=== PATIENT | female | born 1955 | race American Indian/Alaskan Native ===

== ENCOUNTER 2016-12-14 06:01 | Inpatient (IN) | payer MEDICARE ==
--- NOTE | 2016-12-12 08:40 | Anesthesia Consultation ---
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 NAC previously.
[2016-12-12 08:45] LABS: Basophils % (Auto) 0.4 % (0.0-1.8); Eosinophils % (Auto) 1.2 % (0.0-4.3); Hematocrit 36.2 % (30.3-42.9); Hemoglobin 12.4 gm/dl (10.1-14.3); Mean Corpuscular HGB Conc 34 % (30-34); Mean Corpuscular Hemoglobin 31 pg (28-32); Mean Corpuscular Volume 90 fl (79-97); Platelet Count 188 K/mm3 (140-440); Red Blood Count 4.01 M/mm3 (3.65-5.03); Red Cell Distribution Width 15.5 % (13.2-15.2); White Blood Count 8.7 K/mm3 (4.5-11.0)
[2016-12-12 08:58] LABS: INR 0.91 (0.87-1.13)
[2016-12-12 09:15] LABS: Anion Gap 15 mmol/L; Blood Urea Nitrogen 15 mg/dL (7-17); Calcium 9.4 mg/dL (8.4-10.2); Carbon Dioxide 30 mmol/L (22-30); Glucose 201 mg/dL (65-100); Potassium 3.6 mmol/L (3.6-5.0); Sodium 144 mmol/L (137-145)
[~2016-12-14 06:01] MED LIST: ANCEF/STERILE WATER 2 GM/20 ML 2 GM/20 ML SYRINGE IV NR; NACL 0.9% 1000 ML 1,000 ML IV SCH
[2016-12-14] MEDS ORDERED: NACL BACTERIOSTATIC INFILTRATI ONE (06:37)
[2016-12-14] MEDS ORDERED: NACL 0.9% 1000 ML 1,000 ML ONE ×4 (07:14→14:49)
[2016-12-14] MEDS ORDERED: MARCAINE 0.5% 30 ML INFILTRATI ONE (07:14)
[2016-12-14] MEDS ORDERED: PROTAMINE SULFATE ONE (07:14)
[2016-12-14] MEDS ORDERED: SODIUM BICARBONATE ONE (07:15)
[2016-12-14] MEDS ORDERED: XYLOCAINE 1%/ EPI 1:100,000 INFILTRATI ONE (07:15)
[2016-12-14] MEDS ORDERED: NACL 0.9% 500 ML 500 ML ONE (07:15)
[2016-12-14] MEDS ORDERED: HEPARIN 10,000 UNITS/10 ML ONE (07:15)
[2016-12-14] MEDS ORDERED: SUBLIMAZE ONE (07:24)
[2016-12-14] MEDS ORDERED: XYLOCAINE MPF 2% ONE (07:24)
[2016-12-14] MEDS ORDERED: DIPRIVAN 10 MG/ML IV ONE (07:24)
[2016-12-14] MEDS ORDERED: VERSED IV NR (08:00)
[2016-12-14] MEDS ORDERED: PEPCID IV NR (08:00)
[2016-12-14] MEDS ORDERED: NEO SYNEPHRINE ONE (08:43)
[2016-12-14] MEDS ORDERED: NACL 0.9% 100 ML ONE (08:43)
[2016-12-14] MEDS ORDERED: ePHEDrine SULFATE ONE (08:47)
[2016-12-14] MEDS ORDERED: MARCAINE 0.5% INFILTRATI ONE (09:10)
[2016-12-14] MEDS ORDERED: OMNIPAQUE (240mg) IV ONE (09:10)
[2016-12-14] MEDS ORDERED: HEPARIN 10,000 UNITS/10 ML 2,000 UNIT in NACL 0.9% 500 ML 500 ML IR ONE (09:10)
[2016-12-14] MEDS ORDERED: NACL 0.9% 1000 ML IR ONE ×2 (09:10)
[2016-12-14] MEDS ORDERED: DILAUDID IV PRN ×2 (12:29→17:46)
[2016-12-14] MEDS ORDERED: ZOFRAN IV PRN (13:00)
[2016-12-14] MEDS ORDERED: ZEMURON IV ONE ×2 (13:47)
[2016-12-14] MEDS ORDERED: NEOSTIGMINE ONE (15:06)
[2016-12-14] MEDS ORDERED: ROBINUL ONE (15:06)
[2016-12-14] MEDS ORDERED: DILAUDID ONE (15:11)
--- NOTE | 2016-12-14 15:38 | Post Anesthesia Evaluation ---
- Post Anesthesia Evaluation Patient Participated: Yes Airway Patent: Yes Stable Respiratory Function: Yes Nausea/Vomiting: No Temp > 96.8F: Yes Pain Manageable: Yes Adequeate Hydration: Yes Anesthesia Complications: No Block Receding Appropriately: Not Applicable Patient on Ventilator: No
[2016-12-14] MEDS ORDERED: PROAIR IH PRN (15:47)
[2016-12-14] MEDS ORDERED: NON-FORMULARY (Tizanidine Hcl [Tizanidine] 2 MG) PO PRN (15:47)
[2016-12-14] MEDS ORDERED: D50W (25GM) Syringe IV PRN (15:52)
[2016-12-14] MEDS ORDERED: PLAVIX PO ONE (15:52)
[2016-12-14] MEDS ORDERED: PROVENTIL IH PRN (15:55)
--- NOTE | 2016-12-14 16:01 | Post Operative Note ---
Date of procedure: 12/14/16 Pre-op diagnosis: bilateral LE chronic ischemia Post-op diagnosis: same Findings: occlusion of bilateral common iliac arteries, occlusion of right external iliac artery, bilateral common femoral arteries with high grade stenosis. Procedure: aortogram with bilateral iliac angiogram. no previous films available catheter positioning in the distal aorta up and over wire positioning in the right common iliac, external iliac artery left common iliac angioplasty with 6x 40 [place] balloon and common iliac stenting with 7 x 59 Viabahn VBX balloon expandable bilateral common femoral endarterectomies left to right fem fem bypass with 7mm external ring supported Kouts graft Anesthesia: GETA Surgeon: GENE KLEIN Baker Head: SONNY VILLANUEVA Estimated blood loss: other (150cc) Pathology: list Specimen disposition: to lab Condition: stable Disposition: PACU
[2016-12-14] MEDS ORDERED: ZANAFLEX PO PRN (16:06)
[2016-12-14] MEDS ORDERED: INSULIN ASPART 7 UNIT SQ SCH (16:30)
--- NOTE | 2016-12-14 17:02 | Operative Report ---
Operative Report Operative Report: Operative note: Date: 12/14/2016 Preoperative diagnosis: Bilateral lower extremity ischemia with left limiting short distance claudication Postoperative diagnosis: Same. Operation: aortogram with bilateral iliac angiogram. no previous films available catheter positioning in the distal aorta up and over wire positioning in the right common iliac, external iliac artery left common iliac angioplasty with 6x 40 [place] balloon and common iliac stenting with 7 x 59 Viabahn VBX balloon expandable bilateral common femoral endarterectomies left to right fem fem bypass with 7mm external ring supported [place] graft Surgeon: Lor Boo. Asst.: Casimiro Alfredo Anesthesia: Gen. EBL: 1 50 mL Fluids: 3 L crystalloids Findings: Bilateral common iliac and right external iliac occlusions, bilateral common femoral arteries with high-grade stenosis Indications: 61-year-old female with left limiting short distance claudication and no palpable femoral pulses. She was explained risks, benefits and alternatives of procedure and chose to proceed, signed consent. Operative details: Patient was brought to the operating room and placed in supine position. She underwent endotracheal intubation and a line placement by anesthesia provider. She was prepped from the xiphoid process to the knees and draped in sterile fashion exposing bilateral groins. Timeout performed. We started with making a vertical incision over right femoral artery with 10 blade and carried down with electrocautery subcutaneous tissue. Crossing venous branches were ligated and divided. Femoral artery was exposed. It was dissected proximally and distally. Profunda artery and superficial femoral artery were identified and encircled with Silastic vessel loops. Branches were identified and taken on total silk and secured with hemostat. Next we performed incision over left common femoral area with 10 blade and carried down with electrocautery through subcutaneous tissue. Left common femoral artery was exposed. Crossing branches were ligated and divided. It was dissected proximally and distally. Profunda artery and superficial femoral artery were identified and encircled with Silastic vessel loops. All branches were taken on total silk and secured with hemostats. For proximal control vessel loop was placed at the proximal common femoral artery. Femorofemoral tunnel was created using hemostat and the tape was secured in the tunnel with hemostat. Initially, we attempted placing a micropuncture wire and micropuncture sheath in the right common femoral artery. Iliac angiogram was performed and showed occlusion of proximal external iliac artery. We attempted Crossing with a Bentson wire, however it was unsuccessful. Placed next we accessed the left common femoral artery and placed a micropuncture sheath. It was exchanged to a 6 Faroese access sheath over a Bentson wire. Maneuvering vertebral catheter and Glidewire we were able to advance dose in the distal aorta. A vertebral catheter was exchanged to Omni flush catheter. aortogram with bilateral iliac runoffs was performed. It showed bilateral common iliac occlusions, and areas of high-grade stenosis, right external iliac occlusion. We decided to perform right femoral endarterectomy and attempted to get through external iliac occlusion. He was still significant amount of occluded right external iliac left. We then attempted to go up and over from the left side using a Glidewire and Omni Flush catheter initially, then Rim catheter. We were able to maneuver the wire through the proximal common iliac occlusion into the external iliac occluded area, but couldn't advance it further. A rim catheter was then exchanged to trailblazer, however all attempts were unsuccessful. At this point we decided to perform left iliac stenting and femoral to femoral bypass. The advanced Glidewire into aorta, advanced trailblazer into the distal aorta also. Glidewire was exchanged to an Amplatz wire. Trailblazer was removed. It was divided difficult manipulating catheters through left common iliac occlusion, therefore we decided to perform balloon angioplasty before placing iliac stent. 6 x 40 mm covered with bone was advanced and positioned at the common iliac occlusion. It was inflated to 8 john for 1 minute. Balloon was removed and Access sheath was exchanged to a long 7 [place] bright tip access sheath. The tip of the sheath was positioned at the takeoff of common iliac artery. Then 7 x 59 Viabahn VBX stent was positioned. Sheath was pulled back and stent was deployed. Post-deployment angiogram showed good location of the stent, but required more dilation. It was postdilated with 8 mm conquest balloon. There was a good lumen seen on post dilation angiogram. Next, proximal and distal control was gained and all devices were removed from left common femoral artery. Arteriotomy was performed with 11 blade and extended with Dyson scissors. Femoral endarterectomy was performed using freer elevator. Good lumen of profunda was checked. It was good backbleeding. Proximal superficial femoral artery had disease and plaque was truncated and flaps were tacked with 6-0 Prolene. 7 mm core graft supported with external ring was tunneled using created tunnel previously. Graft was called beveling to cover arteriotomy site. Anastomosis was created circumferentially with 5-0 suture. It required few repair stitches. Fibrillar was placed over needle holes. Before closing anastomosis all vessels were flushed showing good flow in profunda, superficial femoral artery and common femoral artery, lumen was flushed. Proximal and distal controls were released and graft was clamped at the right groin side. Then we switched our attention to right groin. The graft was cut and beveled to fit the endarterectomized site. Anastomosis was created using 5-0 Prolene. Before completion of anastomosis all lumens were flushed including profunda, superficial femoral artery, common femoral artery, graft. The lumen was irrigated with heparinized saline. Anastomosis was completed. It required a couple repair stitches for hemostasis. Quick clot sponge was placed to secure hemostasis from needle holes. Once hemostasis was achieved and good Doppler signals were confirmed bilaterally groins were closed in 2 layers with Vicryl and 4-0 Monocryl. Dermabond was applied. Identical procedure all needle and sponge counts were correct 2. Patient tolerated the procedure well. She had bilateral DP Doppler signals. She was extubated and transferred to PACU in stable condition.
[2016-12-14] MEDS ORDERED: VASELINE LIP THERAPY TP ONE (19:36)
[2016-12-14] MEDS: NORCO 5/325 PO PRN (20:26)
[2016-12-14] MEDS ORDERED: NACL 0.9% 1000 ML 1,000 ML IV SCH (21:52)
[2016-12-14] MEDS ORDERED: RANITIDINE HCL 150 MG PO SCH (22:00)
[2016-12-14] MEDS ORDERED: NON-FORMULARY (Pregabalin [Lyrica] 100 MG) PO SCH (22:00)
[2016-12-14] MEDS ORDERED: PEPCID PO SCH (22:00)
[2016-12-14] MEDS ORDERED: NON-FORMULARY (Insulin Glargine 15 UNIT) SUB-Q SCH (22:00)
[2016-12-14] MEDS: LYRICA PO SCH ×2 (22:28→22:31)
[2016-12-14] MEDS: COREG PO SCH (22:28)
[2016-12-14] MEDS: NOVOLOG SUB-Q SCH (22:29)
[2016-12-14] MEDS: PLETAL PO SCH (22:30)
[2016-12-14] MEDS: LEVEMIR SUB-Q SCH (22:30)
[2016-12-15] MEDS: ANCEF/NS 1 GM/50 ML 1 GM/50 ML BAG IV SCH (00:35)
[2016-12-15] MEDS: MORPHINE IV PRN ×4 (04:21→21:53)
[2016-12-15 04:43] LABS: Hematocrit 26.2 % (30.3-42.9); Hemoglobin 8.9 gm/dl (10.1-14.3)
[2016-12-15 05:05] LABS: Blood Urea Nitrogen 21 mg/dL (7-17); Calcium 7.5 mg/dL (8.4-10.2); Carbon Dioxide 22 mmol/L (22-30); Glucose 82 mg/dL (65-100)
[2016-12-15 05:06] LABS: Potassium 3.4 mmol/L (3.6-5.0); Sodium 141 mmol/L (137-145)
[2016-12-15 05:10] LABS: Anion Gap 16 mmol/L
[2016-12-15] MEDS: NOVOLOG SUB-Q SCH ×7 (07:45→22:00)
--- NOTE | 2016-12-15 09:20 | Progress Note ---
Subjective Date of service: 12/15/16 Interval history: No anesthetic related complaints. Objective - Constitutional Vitals: Vital Signs - 12hr 12/14/16 12/14/16 12/14/16 22:00 22:28 23:00 Temperature Pulse Rate 76 77 75 Respiratory 16 17 Rate Blood Pressure 136/82 147/82 O2 Sat by Pulse 99 100 Oximetry 12/14/16 12/15/16 12/15/16 23:31 00:00 04:00 Temperature 97.9 F 98.7 F Pulse Rate 75 Respiratory 16 Rate Blood Pressure 148/84 O2 Sat by Pulse 100 Oximetry 12/15/16 12/15/16 07:15 08:00 Temperature 98.3 F Pulse Rate Respiratory 18 Rate Blood Pressure O2 Sat by Pulse Oximetry - Labs CBC & Chem 7: 12/15/16 04:02 12/15/16 04:02 Labs: Abnormal lab results 12/14/16 12/14/16 12/14/16 Range/Units 12:50 16:30 21:24 Hgb (10.1-14.3) gm/dl Hct (30.3-42.9) % Potassium (3.6-5.0) mmol/L BUN (7-17) mg/dL POC Glucose 118 H 139 H 129 H (70-105) Calcium (8.4-10.2) mg/dL 12/15/16 12/15/16 Range/Units 04:02 04:02 Hgb 8.9 L D (10.1-14.3) gm/dl Hct 26.2 L D (30.3-42.9) % Potassium 3.4 L (3.6-5.0) mmol/L BUN 21 H (7-17) mg/dL POC Glucose (70-105) Calcium 7.5 L D (8.4-10.2) mg/dL
[2016-12-15] MEDS ORDERED: POTASSIUM CHLORIDE 10 MEQ PO SCH (10:00)
[2016-12-15] MEDS ORDERED: METFORMIN HCL 1000 MG PO SCH (10:00)
[2016-12-15] MEDS ORDERED: PROTONIX PO SCH (10:00)
[2016-12-15] MEDS ORDERED: NON-FORMULARY (Losartan [Cozaar] 100 MG) PO SCH (10:00)
[2016-12-15] MEDS: PLAVIX PO SCH (10:36)
[2016-12-15] MEDS: COZAAR PO SCH (10:36)
[2016-12-15] MEDS: COREG PO SCH ×3 (10:37→22:34)
[2016-12-15] MEDS: GLUCOPHAGE PO SCH (10:37)
[2016-12-15] MEDS: LYRICA PO SCH ×4 (10:37→21:52)
[2016-12-15] MEDS: PROTONIX PO SCH (10:37)
[2016-12-15] MEDS: HCTZ PO SCH (10:37)
[2016-12-15] MEDS: K-DUR PO SCH (10:38)
[2016-12-15] MEDS: FLONASE NS SCH (10:38)
[2016-12-15] MEDS: LOVENOX SUB-Q SCH (10:39)
[2016-12-15] MEDS: NORVASC PO SCH (10:50)
--- NOTE | 2016-12-15 12:35 | Consultation ---
History of Present Illness Consult date: 12/15/16 Requesting physician: GENE KLEIN Reason for consult: other (PVD with bilateral Iliac Artery Occlusion; ) History of present illness: PULMONARY/CCM CONSULT NOTE (Full dictation # [id number]) Please see dictated notes for full details Medications and Allergies Allergies Allergy/AdvReac Type Severity Reaction Status Date / Time clonidine HCl [From Catapres] AdvReac cough Verified 12/07/16 17:22 applesauce Allergy Hives Uncoded 12/07/16 17:22 Home Medications Medication Instructions Recorded Confirmed Last Taken Type Albuterol Sulfate [Ventolin HFA] 2 puff IH Q4H PRN 12/12/16 12/12/16 Unknown History Alendronate Sodium [Fosamax] 70 mg PO QWEEK 12/12/16 12/14/16 12/12/16 07:30 History Aspirin [Adult Low Dose Aspirin EC] 81 mg PO DAILY 12/12/16 12/14/16 12/13/16 10 :00 History AtorvaSTATin [Lipitor] 40 mg PO QHS 12/12/16 12/14/16 12/14/16 04:45 History Carvedilol [Coreg] 12.5 mg PO BID 12/12/16 12/14/16 12/14/16 04:45 History Cilostazol [Pletal] 100 mg PO BID 12/12/16 12/14/16 12/14/16 04:45 History Fluticasone [Flonase] 2 spray NS QDAY 12/12/16 12/14/16 12/14/16 04:45 History Hydrochlorothiazide [HCTZ] 25 mg PO QDAY 12/12/16 12/14/16 12/14/16 04:45 History Insulin Aspart [NovoLOG Flexpen] 7 units SQ AC 12/12/16 12/14/16 12/13/16 21:30 History Insulin Glargine [Lantus] 15 unit SUB-Q QHS 12/12/16 12/14/16 12/13/16 21:30 History Losartan [Cozaar] 100 mg PO QDAY 12/12/16 12/14/16 12/14/16 04:45 History Metformin HCl [Metformin HCl ER] 1,000 mg PO DAILY 12/12/16 12/14/16 12/13/16 10 :00 History Pantoprazole [Protonix] 40 mg PO QDAY 12/12/16 12/14/16 12/14/16 04:45 History Potassium Chloride [Klor-Con 10 meq PO DAILY 12/12/16 12/14/16 12/14/16 04:45 History Sprinkle] Pregabalin [Lyrica] 100 mg PO BID 12/12/16 12/14/16 12/14/16 04:45 History Ranitidine HCl 150 mg PO BID 12/12/16 12/14/16 12/14/16 04:45 History Tizanidine HCl [tiZANidine] 2 mg PO DAILY PRN 12/12/16 12/14/16 12/14/16 04:45 History amLODIPine [Norvasc] 10 mg PO DAILY 12/12/16 12/14/16 12/14/16 04:45 History Active Meds: Active Medications Acetaminophen/Hydrocodone Bitart ([place] 5/325) 2 each PO Q6H PRN PRN Reason: Pain, Moderate (4-6) Last Admin: 12/14/16 20:26 Dose: 2 each Albuterol (Proventil) 2.5 mg IH Q4HRT PRN PRN Reason: Shortness Of Breath Alendronate Sodium (Fosamax) 70 mg PO Th [facility] Amlodipine Besylate (Norvasc) 10 mg PO DAILY [facility] Last Admin: 12/15/16 10:50 Dose: 10 mg Atorvastatin Calcium (Lipitor) 40 mg PO QHS [facility] Last Admin: 12/14/16 22:28 Dose: 40 mg Carvedilol (Coreg) 12.5 mg PO BID [facility] Last Admin: 12/15/16 10:37 Dose: 12.5 mg Cilostazol (Pletal) 100 mg PO BID [facility] Last Admin: 12/14/16 22:30 Dose: 100 mg Clopidogrel Bisulfate (Plavix) 75 mg PO QDAY [facility] Last Admin: 12/15/16 10:36 Dose: 75 mg Dextrose (D50w (25gm) Syringe) 50 ml IV PRN PRN PRN Reason: Hypoglycemia Enoxaparin Sodium (Lovenox) 40 mg SUB-Q QDAY [facility] Last Admin: 12/15/16 10:39 Dose: 40 mg Fluticasone Propionate (Flonase) 100 mcg NS QDAY [facility] Last Admin: 12/15/16 10:38 Dose: 100 mcg Hydrochlorothiazide (Hctz) 25 mg PO QDAY [facility] Last Admin: 12/15/16 10:37 Dose: 25 mg Insulin Aspart (Novolog) 0 units SUB-Q ACHS [facility] PRN Reason: Protocol Last Admin: 12/15/16 12:31 Dose: Not Given Insulin Aspart (Novolog) 7 units SUB-Q AC [facility] Last Admin: 12/15/16 12:31 Dose: 7 units Insulin Detemir (Levemir) 15 units SUB-Q QHS [facility] Last Admin: 12/14/16 22:30 Dose: Not Given Losartan Potassium (Cozaar) 100 mg PO QDAY [facility] Last Admin: 12/15/16 10:36 Dose: 100 mg Metformin HCl (Glucophage) 1,000 mg PO QDAY [facility] Last Admin: 12/15/16 10:37 Dose: 1,000 mg Morphine Sulfate (Morphine) 2 mg IV Q4H PRN PRN Reason: Pain, Moderate (4-6) Last Admin: 12/15/16 10:33 Dose: 2 mg Morphine Sulfate (Morphine) 4 mg IV Q4H PRN PRN Reason: Pain , Severe (7-10) Pantoprazole Sodium (Protonix) 40 mg PO QDAY [facility] Last Admin: 12/15/16 10:37 Dose: 40 mg Potassium Chloride (K-Dur) 10 meq PO QDAY [facility] Last Admin: 12/15/16 10:38 Dose: 10 meq Pregabalin (Lyrica) 25 mg PO BID [facility] Last Admin: 12/15/16 10:37 Dose: 25 mg Pregabalin (Lyrica) 75 mg PO BID [facility] Last Admin: 12/15/16 10:49 Dose: 75 mg Tizanidine HCl (Zanaflex) 2 mg PO QDAY PRN PRN Reason: Muscle Spasm Physical Examination Vital signs: Vital Signs Temp Pulse Resp BP 98.2 F 70 16 144/80 12/12/16 08:15 12/12/16 08:15 12/12/16 08:15 12/12/16 08:15 Results - Laboratory Findings CBC and BMP: 12/15/16 04:02 12/15/16 04:02 PT/INR, D-dimer PT 12.7 Sec. (12.2-14.9) 12/12/16 08:05 INR 0.91 (0.87-1.13) 12/12/16 08:05 Abnormal lab findings: Abnormal Labs 12/12/16 12/12/16 12/14/16 08:05 08:05 06:49 Hgb Hct RDW 15.5 H [place] % (Auto) 10.7 H [place] # 0.9 H Potassium BUN Creatinine 0.5 L Glucose 201 H POC Glucose 109 H Calcium 12/14/16 12/14/16 12/14/16 12:50 16:30 21:24 Hgb Hct RDW [place] % (Auto) [place] # Potassium BUN Creatinine Glucose POC Glucose 118 H 139 H 129 H Calcium 12/15/16 12/15/16 12/15/16 04:02 04:02 11:55 Hgb 8.9 L D Hct 26.2 L D RDW [place] % (Auto) [place] # Potassium 3.4 L BUN 21 H Creatinine Glucose POC Glucose 182 H Calcium 7.5 L D
[2016-12-15] MEDS: PLETAL PO SCH ×2 (13:05→22:01)
--- NOTE | 2016-12-15 15:07 | Progress Note ---
Assessment and Plan 61-year-old female with bilateral iliac artery disease and status post left to right femoral-femoral bypass with endarterectomies and left iliac artery stenting and angioplasty. Patient doing well from procedure. Doing well. Vital signs stable. We'll plan on transfer out of unit tomorrow if everything going well. Out of bed 3 times a day, minimum. Subjective Date of service: 12/15/16 Interval history: Patient doing well. Got out of bed multiple times. Both feet are warm and well -perfused. No pain in her calves. No pain in her feet. No motor dysfunction. No sensory dysfunction except for chronic baseline neuropathy. Nonpalpable pedal pulses that are dopplerable. Both groin sites are clean, dry, and intact. Objective - Constitutional Vitals: Vital Signs - 12hr 12/15/16 12/15/16 12/15/16 04:00 07:15 08:00 Temperature 98.7 F 98.3 F Pulse Rate Respiratory 18 Rate Blood Pressure 12/15/16 12/15/16 12/15/16 10:36 10:37 10:50 Temperature Pulse Rate 97 H 89 93 H Respiratory Rate Blood Pressure 140/77 140/77 140/77 12/15/16 12/15/16 11:45 12:46 Temperature 97.9 F Pulse Rate Respiratory 22 Rate Blood Pressure General appearance: Present: no acute distress - EENT Eyes: EOM intact ENT: hearing intact - Respiratory Respiratory effort: normal Extremity abnormal: other (see subjective ) - Psychiatric Psychiatric: appropriate mood/affect, cooperative - Labs CBC & Chem 7: 12/15/16 04:02 12/15/16 04:02 Labs: Abnormal lab results 12/14/16 12/14/16 12/15/16 Range/Units 16:30 21:24 04:02 Hgb 8.9 L D (10.1-14.3) gm/dl Hct 26.2 L D (30.3-42.9) % Potassium (3.6-5.0) mmol/L BUN (7-17) mg/dL POC Glucose 139 H 129 H (70-105) Calcium (8.4-10.2) mg/dL 12/15/16 12/15/16 Range/Units 04:02 11:55 Hgb (10.1-14.3) gm/dl Hct (30.3-42.9) % Potassium 3.4 L (3.6-5.0) mmol/L BUN 21 H (7-17) mg/dL POC Glucose 182 H (70-105) Calcium 7.5 L D (8.4-10.2) mg/dL
[2016-12-15] MEDS: LEVEMIR SUB-Q SCH (22:01)
[2016-12-16] MEDS: MORPHINE IV PRN ×4 (01:55→22:34)
[2016-12-16] MEDS: ANCEF/NS 1 GM/50 ML 1 GM/50 ML BAG IV SCH (02:21)
[2016-12-16] MEDS: NORCO 5/325 PO PRN (02:26)
[2016-12-16] MEDS ORDERED: ANCEF/NS 1 GM/50 ML 1 GM/50 ML BAG IV SCH (03:00)
--- NOTE | 2016-12-16 04:13 | Consultation ---
PULMONARY CRITICAL CARE EVALUATION NOTE CONSULTING PHYSICIAN: Dr. Boo. REASON FOR CONSULTATION: Peripheral vascular disease with occlusion of bilateral common iliac arteries, occlusion of the right external iliac artery, and bilateral common femoral arteries with high grade stenosis status post bilateral common femoral endarterectomies and left to right fem-fem bypass. CHIEF COMPLAINT AND HISTORY OF PRESENT ILLNESS: The patient is a 61-year-old -[place] female with past medical history indeed significant for a diagnosis of peripheral vascular disease, intermittent claudication that has really bothered her and reduced her quality of life. She was seen by the [facility] Vascular specialist team and electively admitted for performance of the operative intervention as mentioned above. Postoperatively, ICU admission was requested for close monitoring and observation. When I stopped by to see her, she was resting in room. She was lying in bed. She had sat up in chair, but has not really walked around on the leg yet. She was complaining of bilateral lower extremity pain all the same. She denied any nausea or vomiting. She denied any hematochezia. She denied any chest pain. She denied fevers or chills. She does admit to certainly a 10+ pack year tobacco smoking history, but quit smoking she tells me in 2006. That really is as much of the history of presentation as I have. She does have a history of chronic obstructive lung disease. Denies being on any bronchodilator medications at home. PAST MEDICAL HISTORY: Again, as far as I can tell from the records, history of atherosclerotic vascular disease, chronic obstructive lung disease, hyperlipidemia, diabetes, chronic kidney disease stage 3, gastroesophageal reflux disease, chronic pancreatitis. PAST SURGICAL HISTORY: She has had surgery of esophagus, she is unclear what that was. 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 Now, she has had this surgery as mentioned above. MEDICATIONS: She was on at the time I stopped by to see her, according to the medication administration record included the following: [place] 5/325 two tablets p.o. q. 6 hours p.r.n. moderate pain, Fosamax 70 mg p.o. once weekly, Norvasc 10 mg p.o. daily, Lipitor 40 mg p.o. at bedtime, Coreg 12.5 mg p.o. b.i.d., cilostazol 100 mg p.o. b.i.d., Plavix 75 mg p.o. daily, Lovenox 40 mg p.o. daily, Flonase 100 mcg to each nostril daily one time, hydrochlorothiazide 25 mg p.o. daily, insulin via sliding scale, detemir insulin units subcutaneous at bedtime, metformin 1 gram p.o. daily, morphine sulfate 4 mg IV q. 4 hours p.r.n. severe pain, Protonix 40 mg p.o. daily, potassium chloride 10 mEq p.o. daily, Lyrica a total of 100 mg p.o. b.i.d., Zanaflex 2 mg p.o. daily, p.r.n. muscle spasms. ALLERGIES: CLONIDINE AND TO APPLESAUCE, NATURE OF THIS ALLERGY IS UNKNOWN. DIET: Thin lady. Denies significant weight loss or gain in the preceding few weeks to months. FAMILY AND SOCIAL HISTORY: Lives in the community. She has a remote 10+ pack year tobacco smoking history. Denies current alcohol, tobacco, or illicit drug use or abuse. Family history, otherwise noncontributory. REVIEW OF SYSTEMS: No loss of consciousness. No new onset seizures. No new onset focal weakness. No gross hematochezia or melena. She has the lower extremity pain. Complete 14 system review of systems obtained. Pertinent positives and/or negatives as in body of history above, otherwise they are noncontributory. PHYSICAL EXAMINATION: VITAL SIGNS: At presentation, she was afebrile, temperature 98.2 degrees Fahrenheit, pulse 74, respiratory rate 16, blood pressure 133/79, oxygen sats are 100%, inspired oxygen concentration was not recorded. She was on room air at the time I saw her. HEAD, EYES, EARS, NOSE AND THROAT: Pupils are equal, round, about 3 mm reactive to light. Extraocular muscle movements are intact. Oropharynx is a Mallampati #2 oropharynx. No significant posterior oropharyngeal erythema. Grossly, no palpable lymph nodes in the supraclavicular or submandibular lymph node chains. No gross jugular venous distention. LUNGS: Auscultation of both lung cuellar, apart from slightly diminished bilateral breath sounds they are clear bilaterally. HEART: Heart sounds 1 and 2 are heard. They were regular in rate and rhythm at time of my evaluation. ABDOMEN: Soft. Bowel sounds are positive. Did not appear tender. EXTREMITIES: Without overt digital clubbing or cyanosis. She has loss of hair to the lower extremities on the [place]z consistent with the peripheral vascular disease. NEUROLOGIC: The exam was grossly nonfocal. LABORATORY DATA: From my review are as follows: Labs from the , white cell count 8700, hemoglobin was 12.4, hematocrit 36.2, platelet count was 188. INR was 0.91. Serum sodium 144, potassium 3.6, chloride 103, bicarbonate 30, BUN 15, creatinine 0.5, and glucose was 201. Hemoglobin today is 8.9. Potassium is 3.4. No microbiology studies. No radiographic studies for my review. ASSESSMENT AND PLAN: We have a middle-aged lady status post extensive vascular surgery, still with some pain, may well just be related to the operative intervention itself. She is actually doing relatively well, hemodynamically stable. Blood pressure is stable. She is not on any oxygen at this point. It is unclear if she has ever been evaluated at length for COPD or how bad it is for now. We will continue the p.r.n. bronchodilators as ordered. Oxygen therapy will be started if her sats drop below 90%. Aspiration precautions will be maintained. She is appropriately on GI and DVT prophylaxis. She was soon be reevaluated by the Vascular team and if it is okay with them, she certainly can be transferred to regular medical floor. I doubt she is going to go home with the amount of pain she is complaining about. Thank you very much for the consult. We will follow along and make further recommendations as picture progresses/becomes clear. Consideration will be made for an arterial blood gas just to better understand how better COPD is in terms of carbon dioxide retention and I should of course mention that we will monitor her H and H just to make sure she is not actively bleeding. JOB# [id number] JOHNSON/DEBBIE
[2016-12-16] MEDS: NOVOLOG SUB-Q SCH ×7 (08:00→18:09)
[2016-12-16] MEDS: NORVASC PO SCH (10:58)
[2016-12-16] MEDS: PLAVIX PO SCH (10:58)
[2016-12-16] MEDS: HCTZ PO SCH (10:58)
[2016-12-16] MEDS: COREG PO SCH ×2 (10:59→22:40)
[2016-12-16] MEDS: FLONASE NS SCH (11:00)
[2016-12-16] MEDS: LOVENOX SUB-Q SCH (11:01)
[2016-12-16] MEDS: PLETAL PO SCH ×2 (11:02→22:23)
[2016-12-16] MEDS: LYRICA PO SCH ×4 (11:12→22:23)
[2016-12-16] MEDS: COZAAR PO SCH (11:12)
[2016-12-16] MEDS: PROTONIX PO SCH (11:13)
[2016-12-16] MEDS: GLUCOPHAGE PO SCH (11:13)
[2016-12-16] MEDS: K-DUR PO SCH (11:15)
--- NOTE | 2016-12-16 12:13 | Progress Note ---
Assessment and Plan - Patient Problems (1) Arterial atherosclerosis Current Visit: Yes Status: Acute Plan to address problem: S/P fem fem bypass with iliac intervention. Wounds clean, dry and intact. Transfer to floor. Subjective Date of service: 12/16/16 Interval history: Feels better after surgery. No complaints Objective - Constitutional Vitals: Vital Signs - 12hr 12/16/16 12/16/16 12/16/16 01:11 01:12 01:55 Temperature Pulse Rate Respiratory 23 17 Rate Respiratory 16 Rate [Bilateral Groin] Blood Pressure 12/16/16 12/16/16 12/16/16 02:25 02:26 03:26 Temperature Pulse Rate Respiratory 17 27 H 20 Rate Respiratory Rate [Bilateral Groin] Blood Pressure 12/16/16 12/16/16 12/16/16 05:00 08:00 10:58 Temperature 99 F Pulse Rate 92 H Respiratory 18 Rate Respiratory 18 Rate [Bilateral Groin] Blood Pressure 134/72 12/16/16 12/16/16 10:59 11:12 Temperature Pulse Rate 92 H 92 H Respiratory Rate Respiratory Rate [Bilateral Groin] Blood Pressure 134/72 134/76 General appearance: Present: no acute distress - EENT ENT: hearing intact - Respiratory Respiratory effort: normal Respiratory: bilateral: CTA - Cardiovascular Rhythm: regular Heart Sounds: Present: S1 & S2 Extremities: no ischemia, No edema, normal color, Full ROM - Musculoskeletal Musculoskeletal: strength equal bilaterally - Psychiatric Psychiatric: appropriate mood/affect - Labs CBC & Chem 7: 12/15/16 04:02 12/15/16 04:02 Labs: Abnormal lab results 12/15/16 12/15/16 12/15/16 Range/Units 11:55 16:32 21:52 POC Glucose 182 H 60 L 232 H (70-105) 12/16/16 Range/Units 08:47 POC Glucose 66 L (70-105)
--- NOTE | 2016-12-16 15:34 | Progress Note ---
Subjective Date of service: 12/16/16 Principal diagnosis: ASCVD s/p fem-fem Bypass; Interval history: Seen and examined at bedside; 24 hour events reviewed; nursing and respiratory care staff consulted; no adverse overnight events reported to me; Objective Vital Signs - 12hr 12/16/16 12/16/16 12/16/16 05:00 08:00 09:00 Temperature 99 F Pulse Rate Respiratory 18 18 Rate Respiratory 18 Rate [Bilateral Groin] Blood Pressure O2 Sat by Pulse 95 Oximetry 12/16/16 12/16/16 12/16/16 10:58 10:59 11:12 Temperature Pulse Rate 92 H 92 H 92 H Respiratory Rate Respiratory Rate [Bilateral Groin] Blood Pressure 134/72 134/72 134/76 O2 Sat by Pulse Oximetry 12/16/16 12:12 Temperature Pulse Rate Respiratory Rate Respiratory Rate [Bilateral Groin] Blood Pressure O2 Sat by Pulse 97 Oximetry CBC and BMP: 12/15/16 04:02 12/15/16 04:02 ABG, PT/INR, D-dimer: PT/INR, D-dimer PT 12.7 Sec. (12.2-14.9) 12/12/16 08:05 INR 0.91 (0.87-1.13) 12/12/16 08:05 Abnormal lab findings: Abnormal Labs 12/12/16 12/12/16 12/14/16 08:05 08:05 06:49 Hgb Hct RDW 15.5 H [place] % (Auto) 10.7 H [place] # 0.9 H Potassium BUN Creatinine 0.5 L Glucose 201 H POC Glucose 109 H Calcium 12/14/16 12/14/16 12/14/16 12:50 16:30 21:24 Hgb Hct RDW [place] % (Auto) [place] # Potassium BUN Creatinine Glucose POC Glucose 118 H 139 H 129 H Calcium 12/15/16 12/15/16 12/15/16 04:02 04:02 11:55 Hgb 8.9 L D Hct 26.2 L D RDW [place] % (Auto) [place] # Potassium 3.4 L BUN 21 H Creatinine Glucose POC Glucose 182 H Calcium 7.5 L D 12/15/16 12/15/16 12/16/16 16:32 21:52 08:47 Hgb Hct RDW [place] % (Auto) [place] # Potassium BUN Creatinine Glucose POC Glucose 60 L 232 H 66 L Calcium
[2016-12-16] MEDS: LEVEMIR SUB-Q SCH (22:26)
[2016-12-17] MEDS: NOVOLOG SUB-Q SCH ×9 (00:39→23:11)
[2016-12-17] MEDS: NORCO 5/325 PO PRN ×3 (04:00→23:09)
[2016-12-17] MEDS: FLONASE NS SCH (11:03)
[2016-12-17] MEDS: PLETAL PO SCH ×2 (11:04→23:12)
[2016-12-17] MEDS: LOVENOX SUB-Q SCH (11:04)
[2016-12-17] MEDS: HALFPRIN EC PO SCH (11:04)
[2016-12-17] MEDS: HCTZ PO SCH (11:04)
[2016-12-17] MEDS: PLAVIX PO SCH (11:05)
[2016-12-17] MEDS: LYRICA PO SCH ×4 (11:05→23:12)
[2016-12-17] MEDS: K-DUR PO SCH (11:06)
[2016-12-17] MEDS: GLUCOPHAGE PO SCH (11:06)
[2016-12-17] MEDS: NORVASC PO SCH (11:14)
[2016-12-17] MEDS: COZAAR PO SCH (11:14)
[2016-12-17] MEDS: COREG PO SCH ×2 (11:15→23:10)
[2016-12-17] MEDS: PROTONIX PO SCH (11:17)
--- NOTE | 2016-12-17 11:19 | Progress Note ---
Assessment and Plan - Patient Problems (1) Arterial atherosclerosis Current Visit: Yes Status: Acute Plan to address problem: S/P fem fem bypass with iliac intervention. Wounds clean, dry and intact. PT, increase mobilization. Subjective Principal diagnosis: ASCVD s/p fem-fem Bypass; Interval history: Feels better after surgery. No complaints. Ambulating in room. Objective - Constitutional Vitals: Vital Signs - 12hr 12/16/16 12/17/16 12/17/16 23:53 07:45 08:12 Temperature 99.4 F 99.0 F Pulse Rate 100 H Respiratory 18 16 Rate Blood Pressure 119/64 138/72 O2 Sat by Pulse 100 100 Oximetry General appearance: Present: no acute distress - Neck Neck: supple, normal ROM - Respiratory Respiratory: bilateral: CTA - Breasts Breasts: deferred - Cardiovascular Rhythm: regular Heart Sounds: Present: S1 & S2 Extremities: no ischemia, pulses symmetrical, No edema, normal color - Gastrointestinal General gastrointestinal: Present: soft, non-tender - Integumentary Integumentary: clear, warm, dry - Labs CBC & Chem 7: 12/15/16 04:02 12/15/16 04:02 Labs: Abnormal lab results 12/16/16 12/16/16 12/17/16 Range/Units 07:47 17:33 06:42 POC Glucose 59 L 141 H 41 L (70-105)
--- NOTE | 2016-12-17 15:50 | Progress Note ---
Assessment and Plan Patient alert. awake. No complaint of chest pain or shortness of breath.O2 saturation 97% on room air. Patient has history of smoking. Counselled to stop smoking. - Patient Problems (1) Arterial atherosclerosis Current Visit: Yes Status: Acute Plan to address problem: Patient has endarterectomy and femoral bypass. Management as per vascular surgery. (2) Tobacco use disorder Current Visit: Yes Status: Acute Plan to address problem: Counselled to stop smoking. PFTs as out patient. Subjective Date of service: 12/17/16 Principal diagnosis: ASCVD s/p fem-fem Bypass; Interval history: Patient alert. awake. No complaint of chest pain or shortness of breath.O2 saturation 97% on room air. Patient has history of smoking. Counselled to stop smoking. Objective Vital Signs - 12hr 12/17/16 12/17/16 12/17/16 07:45 08:12 11:14 Temperature 99.0 F Pulse Rate 88 Respiratory 16 Rate Blood Pressure 138/72 138/72 O2 Sat by Pulse 100 Oximetry 12/17/16 12/17/16 12/17/16 11:15 11:54 15:22 Temperature 99.7 F H 98.3 F Pulse Rate 88 Respiratory 18 18 Rate Blood Pressure 138/72 139/73 103/58 O2 Sat by Pulse Oximetry Constitutional: no acute distress, alert Eyes: non-icteric ENT: oropharynx moist Neck: supple, no lymphadenopathy Ascultation: Bilateral: diminished breath sounds Cardiovascular: regular rate and rhythm Gastrointestinal: normoactive bowel sounds, soft, non-tender Integumentary: normal Extremities: no cyanosis, no edema Neurologic: normal mental status, non-focal exam, pupils equal and round, CN II- XII normal Psychiatric: mood appropriate CBC and BMP: 12/15/16 04:02 12/15/16 04:02 ABG, PT/INR, D-dimer: PT/INR, D-dimer PT 12.7 Sec. (12.2-14.9) 12/12/16 08:05 INR 0.91 (0.87-1.13) 12/12/16 08:05 Abnormal lab findings: Abnormal Labs 12/12/16 12/12/16 12/14/16 08:05 08:05 06:49 Hgb Hct RDW 15.5 H [place] % (Auto) 10.7 H [place] # 0.9 H Potassium BUN Creatinine 0.5 L Glucose 201 H POC Glucose 109 H Calcium 12/14/16 12/14/16 12/14/16 12:50 16:30 21:24 Hgb Hct RDW [place] % (Auto) [place] # Potassium BUN Creatinine Glucose POC Glucose 118 H 139 H 129 H Calcium 12/15/16 12/15/16 12/15/16 04:02 04:02 11:55 Hgb 8.9 L D Hct 26.2 L D RDW [place] % (Auto) [place] # Potassium 3.4 L BUN 21 H Creatinine Glucose POC Glucose 182 H Calcium 7.5 L D 12/15/16 12/15/16 12/16/16 16:32 21:52 07:47 Hgb Hct RDW [place] % (Auto) [place] # Potassium BUN Creatinine Glucose POC Glucose 60 L 232 H 59 L Calcium 12/16/16 12/16/16 12/17/16 08:47 17:33 06:42 Hgb Hct RDW [place] % (Auto) [place] # Potassium BUN Creatinine Glucose POC Glucose 66 L 141 H 41 L Calcium 12/17/16 12/17/16 11:39 14:41 Hgb Hct RDW [place] % (Auto) [place] # Potassium BUN Creatinine Glucose POC Glucose 274 H 223 H Calcium
[2016-12-17] MEDS: LEVEMIR SUB-Q SCH (23:31)
[2016-12-18] MEDS: NOVOLOG SUB-Q SCH ×6 (08:14→18:03)
[2016-12-18] MEDS ORDERED: GLUCOPHAGE XR PO SCH (09:00)
[2016-12-18] MEDS: PLETAL PO SCH (09:23)
[2016-12-18] MEDS: HALFPRIN EC PO SCH (09:23)
[2016-12-18] MEDS: K-DUR PO SCH (09:23)
[2016-12-18] MEDS: LYRICA PO SCH ×2 (09:23)
[2016-12-18] MEDS: PLAVIX PO SCH (09:23)
[2016-12-18] MEDS: PROTONIX PO SCH (09:23)
[2016-12-18] MEDS: LOVENOX SUB-Q SCH (09:24)
[2016-12-18] MEDS: COZAAR PO SCH (09:24)
[2016-12-18] MEDS: COREG PO SCH (09:29)
[2016-12-18] MEDS: HCTZ PO SCH (09:30)
[2016-12-18] MEDS: NORVASC PO SCH (09:30)
[2016-12-18] MEDS: FLONASE NS SCH (09:31)
--- NOTE | 2016-12-18 11:29 | Progress Note ---
Assessment and Plan Pt doing well post-operatively. Ambulates independently short distances without issue. D/c instructions discussed in detail at the bedside. D/c planning in progress. She will f/u in 2 weeks. Okay to d/c home later today when all arrangements completed. Rx: [place] on the chart. - Patient Problems (1) Atherosclerosis of [place] arteries of extremity with intermittent claudication Current Visit: Yes Status: Acute Qualifiers: Peripheral atherosclerosis location: P Laterality: L Subjective Date of service: 12/18/16 Principal diagnosis: ASCVD s/p fem-fem Bypass; Interval history: Patient out of bed ambulating in the room without difficulty without specific complaint. "My legs feel like a million bucks!" Objective - Constitutional Vitals: Vital Signs - 12hr 12/17/16 12/18/16 12/18/16 23:34 08:00 09:24 Temperature 99.6 F 98.4 F Pulse Rate 87 80 76 Respiratory 16 19 Rate Blood Pressure 103/53 124/68 109/64 Blood Pressure [Left] O2 Sat by Pulse 97 99 Oximetry 12/18/16 12/18/16 12/18/16 09:29 09:30 09:36 Temperature Pulse Rate 76 76 76 Respiratory Rate Blood Pressure 109/64 109/64 Blood Pressure 109/64 [Left] O2 Sat by Pulse Oximetry General appearance: Present: no acute distress - EENT Eyes: EOM intact ENT: hearing intact - Neck Neck: supple Extremities: no ischemia, normal temperature, abnormal (incisions intact without erythema or drainage.) - Neurologic Neurologic: no focal deficits - Psychiatric Psychiatric: appropriate mood/affect, intact judgment & insight, cooperative - Labs CBC & Chem 7: 12/15/16 04:02 12/15/16 04:02 Labs: Abnormal lab results 12/17/16 12/17/16 12/17/16 Range/Units 11:39 14:41 21:33 POC Glucose 274 H 223 H 325 H (70-105) 12/18/16 12/18/16 Range/Units 06:54 11:17 POC Glucose 107 H 149 H (70-105)
--- NOTE | 2016-12-18 11:46 | Discharge Summary ---
Providers - Providers Date of Admission: 12/14/16 06:01 Date of discharge: 12/18/16 Attending physician: GENE KLEIN DO 12/14/16 15:52 Consult to Physician [CONS] Routine Consulting Provider: JIM BOND Reason For Exam: icu admission Place consult to:: [place] Notified:: yes Was contact made?: Yes If yes, spoke with:: text 12/17/16 11:21 Physical Therapy Evaluation and Treat [CONS] Routine Comment: Ambulation in hallway, increase mobilization Reason For Exam: S/P fem fem bypass Primary care physician: FRAME CHANGER Hospitalization Reason for admission: Pvd with claudication Condition: Good Procedures: Date of procedure: 12/14/16 Pre-op diagnosis: bilateral LE chronic ischemia Post-op diagnosis: same Findings: occlusion of bilateral common iliac arteries, occlusion of right external iliac artery, bilateral common femoral arteries with high grade stenosis. Procedure: aortogram with bilateral iliac angiogram. no previous films available catheter positioning in the distal aorta up and over wire positioning in the right common iliac, external iliac artery left common iliac angioplasty with 6x 40 [place] balloon and common iliac stenting with 7 x 59 [place] VBX balloon expandable bilateral common femoral endarterectomies left to right fem fem bypass with 7mm external ring supported [place] graft Anesthesia: [place] Surgeon: GENE KLEIN Feeder Operator Automatic: SONNY VILLANUEVA Estimated blood loss: other (150cc) Pathology: list Specimen disposition: to lab Condition: stable Disposition: PACU Disposition: [id number]/[place]-06 HOME UNDER [facility] - Discharge Diagnoses (1) Atherosclerosis of [place] arteries of extremity with intermittent claudication Status: Acute Qualifiers: Peripheral atherosclerosis location: P Laterality: L Core Measure Documentation - Palliative Care Palliative Care/ Comfort Measures: Not Applicable - Core Measures Any of the following diagnoses?: none Exam - Constitutional Vitals: Temp Pulse Resp BP Pulse Ox 98.4 F 76 19 109/64 99 12/18/16 08:00 12/18/16 09:36 12/18/16 08:00 12/18/16 09:36 12/18/16 08:00 General appearance: Present: no acute distress - EENT Eyes: Present: EOM intact ENT: hearing intact - Neck Neck: Present: supple - Respiratory Respiratory effort: normal - Extremities Extremities: no ischemia, normal temperature, abnormal (Incisions intact without erythema or drainage) - Psychiatric Psychiatric: appropriate mood/affect, intact judgment & insight, cooperative Plan Activity: advance as tolerated Weight Bearing Status: Weight Bear as Tolerated Diet: diabetic Wound: keep clean and dry Follow up with: GENE KLEIN DO [Staff Physician] - 14 Days Prescriptions: Clopidogrel [Plavix] 75 mg PO QDAY #30 tablet HYDROcodone/APAP 5-325 [[place] 5/325] 1 each PO Q6HR PRN #30 tablet PRN Reason: Pain
--- NOTE | 2016-12-18 15:22 | Progress Note ---
Assessment and Plan Patient alert. awake. No complaint of chest pain or shortness of breath.O2 saturation 100% on room air. Patient has history of smoking. Counselled to About smoking.Patient said she already stopped smoking. - Patient Problems (1) Arterial atherosclerosis Current Visit: Yes Status: Acute Plan to address problem: Patient has endarterectomy and femoral bypass. Management as per vascular surgery. (2) Tobacco use disorder Current Visit: Yes Status: Acute Plan to address problem: Counselled about stop smoking. Patient said she alread stopped smoking.. If she develop any pulmonary symptoms,Recommend PFTs as out patient. Subjective Date of service: 12/18/16 Principal diagnosis: ASCVD s/p fem-fem Bypass; Interval history: Patient alert. awake. No complaint of chest pain or shortness of breath.O2 saturation 100% on room air. Patient has history of smoking. Counselled to about smoking.Patient said she already stopped smoking. Objective Vital Signs - 12hr 12/18/16 12/18/16 12/18/16 08:00 09:24 09:29 Temperature 98.4 F Pulse Rate 80 76 76 Respiratory 19 Rate Blood Pressure 124/68 109/64 109/64 Blood Pressure [Left] O2 Sat by Pulse 99 Oximetry 12/18/16 12/18/16 09:30 09:36 Temperature Pulse Rate 76 76 Respiratory Rate Blood Pressure 109/64 Blood Pressure 109/64 [Left] O2 Sat by Pulse Oximetry Constitutional: no acute distress, alert Eyes: non-icteric ENT: oropharynx moist Neck: supple, no lymphadenopathy Ascultation: Bilateral: diminished breath sounds Cardiovascular: regular rate and rhythm Gastrointestinal: normoactive bowel sounds, soft, non-tender Integumentary: normal Extremities: no cyanosis, no edema Neurologic: normal mental status, non-focal exam, pupils equal and round, CN II- XII normal Psychiatric: mood appropriate CBC and BMP: 12/15/16 04:02 12/15/16 04:02 ABG, PT/INR, D-dimer: PT/INR, D-dimer PT 12.7 Sec. (12.2-14.9) 12/12/16 08:05 INR 0.91 (0.87-1.13) 12/12/16 08:05 Abnormal lab findings: Abnormal Labs 12/12/16 12/12/16 12/14/16 08:05 08:05 06:49 Hgb Hct RDW 15.5 H [place] % (Auto) 10.7 H [place] # 0.9 H Potassium BUN Creatinine 0.5 L Glucose 201 H POC Glucose 109 H Calcium 12/14/16 12/14/16 12/14/16 12:50 16:30 21:24 Hgb Hct RDW [place] % (Auto) [place] # Potassium BUN Creatinine Glucose POC Glucose 118 H 139 H 129 H Calcium 12/15/16 12/15/16 12/15/16 04:02 04:02 11:55 Hgb 8.9 L D Hct 26.2 L D RDW [place] % (Auto) [place] # Potassium 3.4 L BUN 21 H Creatinine Glucose POC Glucose 182 H Calcium 7.5 L D 12/15/16 12/15/16 12/16/16 16:32 21:52 07:47 Hgb Hct RDW [place] % (Auto) [place] # Potassium BUN Creatinine Glucose POC Glucose 60 L 232 H 59 L Calcium 12/16/16 12/16/16 12/17/16 08:47 17:33 06:42 Hgb Hct RDW [place] % (Auto) [place] # Potassium BUN Creatinine Glucose POC Glucose 66 L 141 H 41 L Calcium 12/17/16 12/17/16 12/17/16 11:39 14:41 21:33 Hgb Hct RDW [place] % (Auto) [place] # Potassium BUN Creatinine Glucose POC Glucose 274 H 223 H 325 H Calcium 12/18/16 12/18/16 06:54 11:17 Hgb Hct RDW [place] % (Auto) [place] # Potassium BUN Creatinine Glucose POC Glucose 107 H 149 H Calcium
--- NOTE | 2016-12-18 16:36 | XRay Report ---
ROUTINE CHEST, TWO VIEWS: HISTORY: History of smoking. The trachea, heart, mediastinal contour, lung cuellar and bony thorax are unremarkable. IMPRESSION: Unremarkable chest x-ray.
[2016-12-18 17:54] VITALS: BP 175/87
[2016-12-21] MEDS ORDERED: FOSAMAX PO SCH (06:30)
== END 2016-12-18 18:05 | disposition home health service (06) | DRG 271 ==
LOC: 3A 06:01 → CC1 17:41 → 3A 12-16 16:34
PROVIDERS: ADMIT Surgery Vascular Surgery; ATTEND Surgery Vascular Surgery
PROC: 047D3DZ Dilation of Left Common Iliac Artery with Intraluminal Device, Percutaneous Approach (ICD-10-PCS; principal; 2016-12-14)
PROC: 04CL3ZZ Extirpation of Matter from Left Femoral Artery, Percutaneous Approach (ICD-10-PCS; 2016-12-14)
PROC: 04CK3ZZ Extirpation of Matter from Right Femoral Artery, Percutaneous Approach (ICD-10-PCS; 2016-12-14)
PROC: 041 Lower Arteries, Bypass (ICD-10-PCS; 2016-12-14)
PROC: 04BL0ZZ Excision of Left Femoral Artery, Open Approach (ICD-10-PCS; 2016-12-14)
PROC: 04UK0JZ Supplement Right Femoral Artery with Synthetic Substitute, Open Approach (ICD-10-PCS; 2016-12-14)
PROC: B41D1ZZ Fluoroscopy of Aorta and Bilateral Lower Extremity Arteries using Low Osmolar Contrast (ICD-10-PCS; 2016-12-14)
DX: I70.212 Atherosclerosis of native arteries of extremities with intermittent claudication, left leg (principal); R71.0 Precipitous drop in hematocrit; E11.51 Type 2 diabetes mellitus with diabetic peripheral angiopathy without gangrene; J45.909 Unspecified asthma, uncomplicated; Z87.891 Personal history of nicotine dependence; J44.9 Chronic obstructive pulmonary disease, unspecified; Z86.73 Personal history of transient ischemic attack (TIA), and cerebral infarction without residual deficits; I10 Essential (primary) hypertension; Z85.9 Personal history of malignant neoplasm, unspecified; Z79.82 Long term (current) use of aspirin; Z79.899 Other long term (current) drug therapy
CPT/HCPCS: 36415; 36620; 71020; 75630; 80048; 82962; 85014; 85018; 85025; 85610; 86850; 86900; 86901; 88304; 88311; 94760; A9270-GY; C1725; C1757; C1768; C1769; C1874; C1885; C1887; C1894; J0690; J1170; J1644; J1650; J1815; J1818; J2250; J2270; J2370; J2704; J2710; J2720; J3010; J7030; J7040; Q9966